=== PATIENT | male | born 1985 | race African-American/Black ===

== ENCOUNTER → 2021-02-19 | Outpatient (CLI) | payer OTHER ==
[~2021-02-19] MED LIST: CLON1TAB12 PO; OMEP20CA16 PO; SERT50TA PO
== END ==
LOC: LAB 10:20
PROVIDERS: ATTEND Surgery
DX: Z01.812 Encounter for preprocedural laboratory examination (principal); Z20.822 Contact with and (suspected) exposure to COVID-19; K21.9 Gastro-esophageal reflux disease without esophagitis
CPT/HCPCS: U0003; U0005